=== PATIENT | male | born 1985 | race Caucasian/White ===

== ENCOUNTER 2018-05-28 11:25 | Emergency (ER) | payer OTHER, BC ==
[2018-05-28] MEDS ORDERED: Sodium Chloride 0.9% 10 ML Syringe FLUSH PRN (11:36)
[2018-05-28] MEDS ORDERED: Lactated Ringers 1,000 ML IV SCH (11:45)
--- NOTE | 2018-05-28 12:16 | EDM.PDOC ---
ED HPI GENERAL MEDICAL PROBLEM - General Chief Complaint: Trauma Stated Complaint: [facility] Time Seen by Provider: 05/28/18 11:35 Source of Information: Reports: Patient, EMS History Limitations: Reports: No Limitations - History of Present Illness INITIAL COMMENTS - FREE TEXT/NARRATIVE: The patient presents by [facility] for a rig accident. The patient was standing on the board when a piece of equipment weighing 50 to 75 pounds fell about 60 feel and hit him in the back. He was wearing a hard hat. He had no LOC. He has no headache or neck pain. He does have severe upper and lower back pain. He has no chest or abdominal pain. He has no pelvic, leg or arm pain. [facility] intercepted with [facility] and gave the patient pain meds. He can move his legs. He has no medical problems. He is allergic to cephalexin. Onset: Sudden Duration: Hour(s): Location: Reports: Back Quality: Reports: Sharp Severity: Severe Improves with: Reports: Immobilization Worsens with: Reports: Movement Context: Reports: Trauma (Hit by a heavy object that fell 60 feet) Associated Symptoms: Reports: No Other Symptoms Lower Back Pain Score (Numeric/FACES): 4 - Related Data Allergies Allergy/AdvReac Type Severity Reaction Status Date / Time cephalexin [From Keflex] Allergy Diarrhea Verified 05/28/18 11:45 Home Meds: Home Meds Ranitidine [Zantac] 300 mg PO DAILY PRN 05/28/18 [History] Review of Systems - Review of Systems Review Of Systems: See Below Constitutional: Reports: No Symptoms Eyes: Reports: No Symptoms Ears: Reports: No Symptoms Nose: Reports: No Symptoms Mouth/Throat: Reports: No Symptoms Respiratory: Reports: No Symptoms Cardiovascular: Reports: No Symptoms GI/Abdominal: Reports: No Symptoms Genitourinary: Reports: No Symptoms Musculoskeletal: Reports: Back Pain (Severe upper and lower back pain) ED EXAM, GENERAL - Physical Exam Exam: See Below Exam Limited By: No Limitations General Appearance: Alert, No Apparent Distress Ears: Normal External Exam Nose: Normal Inspection Head: Atraumatic, Normocephalic Neck: Normal Inspection, Supple, Non-Tender Respiratory/Chest: No Respiratory Distress, Lungs Clear, Normal Breath Sounds Cardiovascular: Regular Rate, Rhythm, No Edema, No Murmur GI/Abdominal: Soft, Non-Tender, No Organomegaly, No Mass Back Exam: Other (Severe pain upon palpation to the upper and lower back starting at C7 all the way down to L5. Edema and ecchymosis noted to the lower back about L2 and into the left flank.) Course - Vital Signs Last Recorded V/S: Last Vital Signs Temp 99.3 F 05/28/18 11:40 Pulse 109 H 05/28/18 11:40 Resp 22 H 05/28/18 11:40 BP 167/97 H 05/28/18 11:40 Pulse Ox 96 05/28/18 11:40 - Orders/Labs/Meds Orders: Active Orders 24 hr Category Date Time Status Cardiac Monitoring [RC] . DIRECTED Care 05/28/18 11:36 Active Peripheral IV Care [RC] . DIRECTED Care 05/28/18 11:37 Active DRUG SCREEN, URINE [URCHEM] Stat Lab 05/28/18 11:36 Ordered UA W/MICROSCOPIC [URIN] Stat Lab 05/28/18 11:36 Ordered Lactated Ringers [Ringers, Lactated] 1,000 ml Med 05/28/18 11:45 Active IV ASDIRECTED Sodium Chloride 0.9% [Saline Flush] Med 05/28/18 11:36 Active 10 ml FLUSH ASDIRECTED PRN Peripheral IV Insertion Adult [OM.PC] Stat Oth 05/28/18 11:36 Ordered Medication Orders Lactated Ringer's (Ringers, Lactated) 1,000 mls @ 125 mls/hr IV ASDIRECTED OK Last Admin: 05/28/18 12:16 Dose: 125 mls/hr Sodium Chloride (Saline Flush) 10 ml FLUSH ASDIRECTED PRN PRN Reason: Keep Vein Open Labs: Laboratory Tests 05/28/18 05/28/18 Range/Units 11:45 11:45 WBC 17.17 H (4.23-9.07) K/mm3 RBC 5.11 (4.63-6.08) M/mm3 Hgb 16.2 (13.7-17.5) gm/L Hct 45.1 (40.1-51.0) % MCV 88.3 (79.0-92.2) fl MCH 31.7 (25.7-32.2) pg MCHC 35.9 H (32.2-35.5) g/dl RDW Std Deviation 41.0 (35.1-43.9) fL Plt Count 234 (163-337) K/mm3 MPV 8.7 L (9.4-12.3) fl Neut % (Auto) 84.2 H (34.0-67.9) % Lymph % (Auto) 9.1 L (21.8-53.1) % [place] % (Auto) 6.0 (5.3-12.2) % Eos % (Auto) 0.2 L (0.8-7.0) Baso % (Auto) 0.1 (0.1-1.2) % Neut # (Auto) 14.45 H (1.78-5.38) K/mm3 Lymph # (Auto) 1.56 (1.32-3.57) K/mm3 [place] # (Auto) 1.03 H (0.30-0.82) K/mm3 Eos # (Auto) 0.04 (0.04-0.54) K/mm3 Baso # (Auto) 0.02 (0.01-0.08) K/mm3 Manual Slide Review Abnormal smear Sodium 141 (136-145) mEq/L Potassium 3.9 (3.5-5.1) mEq/L Chloride 104 (98-107) mEq/L Carbon Dioxide 24 (21-32) mEq/L Anion Gap 16.9 H (5-15) BUN 12 (7-18) mg/dL Creatinine 1.0 (0.7-1.3) mg/dL Est Cr Clr Drug Dosing 125.02 mL/min Estimated GFR (MDRD) > 60 (>60) mL/min BUN/Creatinine Ratio 12.0 L (14-18) Glucose 127 H (74-106) mg/dL Calcium 9.0 (8.5-10.1) mg/dL Total Bilirubin 0.5 (0.2-1.0) mg/dL AST 33 (15-37) U/L ALT 87 H (16-63) U/L Alkaline Phosphatase 73 (46-116) U/L Total Protein 7.9 (6.4-8.2) g/dl Albumin 4.0 (3.4-5.0) g/dl Globulin 3.9 gm/dL Albumin/Globulin Ratio 1.0 (1-2) Lipase 80 (73-393) U/L Ethyl Alcohol 0.00 (0.00) gm% Meds: Medications Generic Name Dose Route Start Last Admin Trade Name Antioneq PRN Reason Stop Dose Admin Lactated Ringer's 1,000 mls @ 125 mls/hr 05/28/18 11:45 05/28/18 12:16 Ringers, Lactated IV 125 mls/hr ASDIRECTED OK Administration Sodium Chloride 10 ml 05/28/18 11:36 Saline Flush FLUSH ASDIRECTED PRN Keep Vein Open - Re-Assessments/Exams Free Text/Narrative Re-Assessment/Exam: 05/28/18 12:18 The patient just got some morphine right before arrival. We removed him from the backboard. I ordered maintenance fluid, labs, and a CT of he head, cervical spine, thoracic, lumbar spine and chest, abdomen and pelvis. 05/28/18 13:48 His WBC was elevated at 17.17. His anion gap was elevated at 16.9. His glucose was elevated at 127. His lipase is normal is 80. His ETOH was 0. The CT of his head and cervical spine show nothing acute. His thoracic spine CT shows nothing acute. The CT of his chest shows 2 rib fracture within the left lower chest at 11 and 12. Incidental dependent atelectasis posteriorly within both lung bases. CT of his abdomen and pelvis shows fatty infiltration within the liver. Transverse spinous process fractures on the left side of L1-L4. No other acute abnormality is appreciated. I wanted to admit the patient here but my surgeon [employer] felt he would do better at a higher level trauma center. 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 I called [facility] in [place] and talked with Dr Burton the ER doctor and he accepted the patient. I will fly him by [employer] helicopter due to the distance and injuries. Departure - Departure Time of Disposition: 14:00 Disposition: DC/Tfer to Acute Hospital 02 Condition: Serious Clinical Impression: Rib fractures Qualifiers: Encounter type: initial encounter Rib fracture type: multiple ribs Fracture type: closed Laterality: left Qualified Code(s): S22.42XA - Multiple fractures of ribs, left side, initial encounter for closed fracture Closed fracture of transverse process of lumbar vertebra Qualifiers: Encounter type: initial encounter Qualified Code(s): S32.009A - Unspecified fracture of unspecified lumbar vertebra, initial encounter for closed fracture - Discharge Information Forms: ED Department Discharge - My Orders Last 24 Hours: My Active Orders 05/28/18 11:36 Cardiac Monitoring [RC] . DIRECTED DRUG SCREEN, URINE [URCHEM] Stat UA W/MICROSCOPIC [URIN] Stat Sodium Chloride 0.9% [Saline Flush] 10 ml FLUSH ASDIRECTED PRN Peripheral IV Insertion Adult [OM.PC] Stat 05/28/18 11:37 Peripheral IV Care [RC] . DIRECTED 05/28/18 11:45 Lactated Ringers [Ringers, Lactated] 1,000 ml IV ASDIRECTED - Assessment/Plan Last 24 Hours: My Active Orders 05/28/18 11:36 Cardiac Monitoring [RC] . DIRECTED DRUG SCREEN, URINE [URCHEM] Stat UA W/MICROSCOPIC [URIN] Stat Sodium Chloride 0.9% [Saline Flush] 10 ml FLUSH ASDIRECTED PRN Peripheral IV Insertion Adult [OM.PC] Stat 05/28/18 11:37 Peripheral IV Care [RC] . DIRECTED 05/28/18 11:45 Lactated Ringers [Ringers, Lactated] 1,000 ml IV ASDIRECTED
--- NOTE | 2018-05-28 12:53 | CT ---
CT chest Technique: Multiple axial sections were obtained from above the lung apices inferiorly through the lung bases. Intravenous contrast was utilized. Comparison: No prior chest imaging. Findings: Opacification of the great vessels is less than optimal. No discrete abnormality is appreciated on this exam. Mediastinum and hilar regions appear within normal limits. No pericardial thickening is seen. Mild dependent atelectasis is noted posteriorly. Lungs otherwise are clear with no pulmonary contusion. No pleural effusions or pneumothorax is seen. Bone window settings were reviewed which shows a fracture within the anterior left 12th rib and posterior 11th ribs. No additional rib fracture is identified. Impression: 1. 2 rib fractures within the left lower chest as described above. 2. Incidental dependent atelectasis posteriorly within both lung bases. 3. No additional abnormality is identified on CT study of the chest. Diagnostic code #3 CT abdomen and pelvis Technique: Multiple axial sections were obtained from above the dome of the diaphragm inferiorly through the pubic symphysis. Intravenous contrast was utilized. No oral contrast has been given. Delayed images were also obtained from above the dome of the diaphragm inferiorly through the pubic symphysis. Comparison: No prior abdominal imaging is available. Findings: Liver shows fatty infiltration. Adrenal glands show no nodule. No focal abnormality is appreciated within the liver. Spleen appears within normal limits. Adrenal glands show no nodule. Pancreas is within normal limits. Gallbladder contains no calcified gallstones. Kidneys show no abnormality. Aorta shows no aneurysm. No retroperitoneal adenopathy or mesenteric abnormalities are seen. Appendix is seen and is normal in size. No pelvic mass or adenopathy is seen. Delayed images shows contrast within the distal ureters and within the bladder. No free fluid or inflammatory change is seen. Incidental sigmoid diverticuli are seen. Bone window settings were reviewed which shows fractures within the transverse process of L1, L2, L3 and L4. No discrete fracture within the pelvis or hips are seen. Impression: 1. Fatty infiltration within the liver. 2. Transverse spinous process fractures on the left side of L1-L4. 3. No other acute abnormality is appreciated. Diagnostic code #3
--- NOTE | 2018-05-28 12:53 | CT ---
CT cervical spine Technique: Multiple axial sections were obtained from above C1 inferiorly to the bottom of T1. Reconstructed sagittal and coronal images were reviewed. Comparison: No priors cervical spine imaging. Findings: Vertebral body heights and disc spaces are maintained. Vertebral bodies and posterior arches are intact. No fracture is identified. No bony central or bony neural foraminal stenosis is seen. No abnormal subluxation is seen within the cervical spine. Impression: 1. Nothing acute is appreciated on CT study of the cervical spine. Diagnostic code #1
--- NOTE | 2018-05-28 12:55 | CT ---
Head CT Technique: Multiple axial sections through the brain were obtained. Intravenous contrast was not utilized. Comparison: No prior intracranial imaging. Findings: Ventricles along with basal cisterns and sulci over the convexities appear within normal limits for the patient's age. No abnormal parenchymal densities are seen. No evidence of intracranial hemorrhage. No midline shift or mass effect is seen. Bone window settings were reviewed which shows no acute calvarial abnormality. Impression: 1. Nothing acute is appreciated on noncontrast head CT study.
--- NOTE | 2018-05-28 12:58 | CT ---
CT lumbar spine Technique: Multiple axial sections were obtained through the lumbar spine. Reconstructed sagittal and coronal images were reviewed. Findings: Displaced fractures are identified within the left transverse process of L1, L2, L3 and L4. No right sided transverse process fractures are seen. Vertebral body heights and disc spaces are maintained. No additional fracture is seen within the lumbar spine. No abnormal subluxation is seen. No traumatic disc herniation is appreciated. Impression: 1. Displaced fractures within the left transverse process of L1, L2, L3 and L4. 2. No additional abnormality is seen on CT study of the lumbar spine. Diagnostic code #3
--- NOTE | 2018-05-28 13:00 | CT ---
CT thoracic spine Technique: Multiple axial sections were obtained through the thoracic spine. Reconstructed sagittal and coronal images were reviewed. Comparison: No prior thoracic spine imaging. Findings: Vertebral body heights and disc spaces are maintained. Vertebral bodies and posterior arches show no fracture. No bony central lower bony neural foraminal stenosis is seen. No abnormal subluxation is seen. No gross disc herniation is identified. Impression: 1. Nothing acute is appreciated on CT study of the thoracic spine. Diagnostic code #1
== END 2018-05-28 14:30 ==
LOC: JD.ED 11:25 → EDBD 11:25 → JD.ED 14:30
DX: S22.42XA Multiple fractures of ribs, left side, initial encounter for closed fracture (principal); S32.009A Unspecified fracture of unspecified lumbar vertebra, initial encounter for closed fracture; W20.8XXA Other cause of strike by thrown, projected or falling object, initial encounter; Z88.8 Allergy status to other drugs, medicaments and biological substances; Z79.899 Other long term (current) drug therapy; Y99.0 Civilian activity done for income or pay
CPT/HCPCS: 36415; 70450; 71260; 72125; 72128; 72131; 74177; 80053; 83690; 85025; 96360; 96361; 99285; G0480; J7120